=== PATIENT | female | born 1980 | race Two or more races ===

== ENCOUNTER 2023-07-10 15:53 | Emergency (ER) | payer OTHER ==
[~2023-07-10] VITALS: Ht 162.6 cm; Wt 55.0 kg
[2023-07-10 16:05] VITALS: BP 118/68; PULSE 68; RESP 20; TEMP 98; O2SAT 100
[2023-07-10] MEDS ORDERED: AUG875T PO (16:12)
[2023-07-10] MEDS ORDERED: MUPI2OIN2 EX (16:12)
[2023-07-10] MEDS ORDERED: IBUP-1453 PO (16:12)
[2023-07-10] MEDS: AMOXICILLIN/CLAVUL 875 MG TAB PO ONE (17:26)
[2023-07-10] MEDS: TETANUS-DIPTH-ACEL PERTUSSIS 0.5ML SYR Tdap IM ONE (17:28)
[2023-07-10] MEDS: NEOMYCIN-BACITRACIN-POLYM UNITDOSE PKG TOP OINT TOP ONE (17:28)
== END 2023-07-10 16:30 | disposition home or self-care (01) ==
LOC: ER 15:53
DX: S81.832A Puncture wound without foreign body, left lower leg, initial encounter (principal); W54.0XXA Bitten by dog, initial encounter; Y93.89 Activity, other specified; Y92.830 Public park as the place of occurrence of the external cause; Y99.8 Other external cause status
CPT/HCPCS: 90471; 90715